=== PATIENT | female | born 2005 | race Caucasian/White ===

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

== ENCOUNTER 2024-04-16 16:03 | Outpatient (REF) | payer OTHER, SELFPAY | END 2024-04-16 16:04 | disposition home or self-care (01) | LOC: HO.HHCL 16:03 | PROVIDERS: Visit Provider Nurse Practitioner Primary Care | DX: Z32.01 Encounter for pregnancy test, result positive (principal); N92.6 Irregular menstruation, unspecified; Z34.90 Encounter for supervision of normal pregnancy, unspecified, unspecified trimester | CPT/HCPCS: 36415; 84702 ==

== ENCOUNTER 2024-04-17 14:59 | Outpatient (REF) | payer OTHER, SELFPAY ==
--- NOTE | ~2024-04-17 | US_ITS ---
EXAMINATION: US OBSTETRICAL ULTRASOUND CLINICAL INFORMATION: Missed menses with question of . COMPARISON: None available. LMP: 01/06/2024. Gestational age by maternal dates is 14 weeks 4 days. However, patient is unsure. Estimated date of delivery by maternal dates is 10/12/2024. TECHNIQUE: Ultrasound of the maternal pelvis is performed using transabdominal and transvaginal transducers. Transvaginal imaging is performed due to inadequate visualization transabdominally. M-mode Doppler is also performed. FINDINGS: There is a single intrauterine gestational sac with visible yolk sac, embryo/fetus, and cardiac activity. There is no significant subchorionic hemorrhage or hematoma. HR: 167 beats per minute. CRL (crown rump length): 2.84 cm (9 weeks 5 days +/- 4 days). JULIA (estimated date of delivery): 11/15/2024 +/- 4 days. MATERNAL ADNEXA: The right maternal ovary measures 3.8 x 3.3 x 3.1 cm which includes a 2.8 x 2.1 x 2.1 cm cyst. The left maternal ovary was not visualized There is no significant maternal adnexal mass. No maternal pelvic ascites. US/US OB <= 14 weeks fetus IMPRESSION: 1. Single intrauterine gestation with ultrasound gestational age of 9 weeks 5 days +/- 4 days. 2. Estimated date of delivery is 11/15/2024 +/- 4 days. 3. No maternal adnexal mass or pelvic ascites. Electronically signed by: Fredy Nickerson MD 04/26/2024 09:57 PM EDT
== END 2024-04-17 15:00 | disposition home or self-care (01) ==
LOC: HO.US 14:59
PROVIDERS: PCP Family Medicine; Visit Provider Nurse Practitioner Primary Care
DX: Z34.91 Encounter for supervision of normal pregnancy, unspecified, first trimester (principal); Z3A.09 9 weeks gestation of pregnancy
CPT/HCPCS: 76801